=== PATIENT | female | born 2000 | race Two or more races ===

== ENCOUNTER 2020-10-30 16:20 | Emergency (ER) | payer OTHER ==
[~2020-10-30] VITALS: Ht 149.9 cm; Wt 49.9 kg
[2020-10-30 16:29] VITALS: BP 100/56
--- NOTE | 2020-10-30 16:50 | NUR ---
Patient discharged to home in stable condition. Written and verbal after care instructions given. Patient verbalizes understanding of instruction. Pt ambulatory with a steady gait
== END 2020-10-30 16:52 | disposition home or self-care (01) ==
LOC: ER 16:35
DX: T78.1XXA Other adverse food reactions, not elsewhere classified, initial encounter (principal); X58.XXXA Exposure to other specified factors, initial encounter